=== PATIENT | female | born 2000 | race American Indian/Alaskan Native ===

== ENCOUNTER 2021-09-07 12:14 | Emergency (ER) | payer SELFPAY ==
[2021-09-07 12:19] VITALS: BP 134/84
--- NOTE | 2021-09-07 12:28 | Emergency Department Report ---
ED Back Pain/Injury HPI - General Chief Complaint: Back Pain/Injury Stated Complaint: LOWER BACK PAIN Time Seen by Provider: 09/07/21 12:23 Source: EMS Limitations: No Limitations - History of Present Illness Initial Comments: Patient presents by ambulance negative back pain. She was bending over cleaning a commode when she felt a sharp pop in her lower back. Pain does not radiate or migrate. This is in the lower back at the waistline. It is bilateral. She states that the pain is worse with movement. She did not take anything for pain. She called an ambulance and was transported here. She is never had back problems. She denies saddle anesthesia. There is no numbness or tingling in the arms or legs per there is no weakness in the arms or legs. She has no abdom inal pain or other complaint. Pain is severe based on her report. - Related Data Previous Rx's Medication Instructions Recorded Last Taken Type Ibuprofen [Motrin] 600 mg PO Q8H PRN #30 tablet 09/07/21 Unknown Rx Metaxalone [Skelaxin] 800 mg PO QHS PRN #5 tab 09/07/21 Unknown Rx Allergies Allergy/AdvReac Type Severity Reaction Status Date / Time No Known Allergies Allergy Verified 09/07/21 12:19 ED Review of Systems ROS: Stated complaint: LOWER BACK PAIN Other details as noted in HPI Comment: All other systems reviewed and negative Constitutional: denies: fever Eyes: denies: vision change ENT: denies: throat pain Respiratory: denies: cough Cardiovascular: denies: chest pain Endocrine: denies: unexplained weight loss Gastrointestinal: denies: abdominal pain Genitourinary: denies: dysuria Musculoskeletal: as per HPI Skin: denies: rash Neurological: denies: numbness, paresthesias Hematological/Lymphatic: denies: easy bruising ED Past Medical Hx - Past Medical History Previous Medical History?: No - Surgical History Past Surgical History?: No - Family History Family history: no significant - Medications Home Medications: Home Medications Medication Instructions Recorded Confirmed Last Taken Type Ibuprofen [Motrin] 600 mg PO Q8H PRN #30 tablet 09/07/21 Unknown Rx Metaxalone [Skelaxin] 800 mg PO QHS PRN #5 tab 09/07/21 Unknown Rx ED Physical Exam - General Limitations: No Limitations, Other (Pulse ox noted and normal) General appearance: alert, in no apparent distress, obese (Morbid) - Head Head exam: Present: atraumatic, normocephalic - Eye Eye exam: Present: normal appearance, PERRL, EOMI - ENT ENT exam: Present: normal orophraynx, normal external ear exam - Neck Neck exam: Present: normal inspection. Absent: tenderness, meningismus - Respiratory Respiratory exam: Present: normal lung sounds bilaterally. Absent: respiratory distress - Cardiovascular Cardiovascular Exam: Present: regular rate, normal rhythm - GI/Abdominal GI/Abdominal exam: Present: soft. Absent: tenderness - Extremities Exam Extremities exam: Present: normal capillary refill - Back Exam Back exam: Present: paraspinal tenderness (Diffuse lumbar). Absent: CVA tenderness (R), CVA tenderness (L) - Neurological Exam Neurological exam: Present: alert, oriented X3, CN II-XII intact, reflexes normal, other (Negative straight leg raise). Absent: motor sensory deficit - Psychiatric Psychiatric exam: Present: normal affect, normal mood - Skin Skin exam: Present: warm, dry ED Course Vital Signs 09/07/21 12:18 Temperature 97.8 F Pulse Rate 86 Respiratory 16 Rate Blood Pressure 134/84 [Right] O2 Sat by Pulse 98 Oximetry - Reevaluation(s) Reevaluation #1: 09/07/21 12:28 EMS was met upon arrival. Patient was discharged. ED Medical Decision Making - Medical Decision Making Patient presents with nontraumatic back pain. She actually was just bending over when her back started to hurt. I am not concerned for fracture based on her mechanism. I certainly have no concern for dislocation. She does not have any neurologic symptoms or deficit that would suggest cauda equina. There is no saddle anesthesia. She has no history of IV drug abuse. I do not believe this represents epidural abscess. Critical Care Time: No Critical care attestation.: If time is entered above; I have spent that time in minutes in the direct care of this critically ill patient, excluding procedure time. ED Disposition Clinical Impression: Acute lumbar myofascial strain Qualifiers: Encounter type: initial encounter Qualified Code(s): S39.012A - Strain of muscle, fascia and tendon of lower back, initial encounter Disposition: HOME / SELF CARE / HOMELESS Is pt being admited?: No Condition: Stable Instructions: Lumbosacral Strain, How to Use Cold Therapy Additional Instructions: Limit lifting. Apply ice. Return for problems. Do not drive while taking muscle relaxants. Follow-up with your family doctor or the referral doctor for recheck. Prescriptions: Metaxalone [Skelaxin] 800 mg PO QHS PRN #5 tab PRN Reason: Spasms Ibuprofen [Motrin] 600 mg PO Q8H PRN #30 tablet PRN Reason: Pain Referrals: PRIMARY CAREMD [Referring] - 3-5 Days VU FRENCH MD [Staff Physician] - 3-5 Days
[2021-09-07] MEDS ORDERED: IBUPROFEN 600 MG TAB PO ONE (12:29)
[2021-09-07] MEDS ORDERED: ETOMIDATE 20 MG/10 ML INJ IV ONE (12:31)
[2021-09-07] MEDS ORDERED: VECURONIUM 10 MG INJ SDV IV ONE (12:31)
== END 2021-09-07 12:33 | disposition home or self-care (01) ==
LOC: ED 12:14
DX: M54.50 Low back pain, unspecified (principal); Z79.899 Other long term (current) drug therapy; X50.1XXA Overexertion from prolonged static or awkward postures, initial encounter; Y93.89 Activity, other specified; Y92.89 Other specified places as the place of occurrence of the external cause; Y99.8 Other external cause status
CPT/HCPCS: 99283